=== PATIENT | female | born 1985 | race Two or more races ===

== ENCOUNTER 2024-10-17 17:02 | Emergency (ER) | payer MEDICAID, SELFPAY ==
[2024-10-17 17:26] VITALS: BP 160/97; PULSE 81; RESP 18; TEMP 36.9; O2SAT 99; BMI 27.8
--- NOTE | 2024-10-17 17:28 | PD.EDDENTL ---
ED Dental RME/HPI General Chief complaint: Dental/Oral/Throat Stated complaint: DENTAL PAIN [id number] Time Seen by Provider: 10/17/24 17:19 Source: patient Arrival date/time: 10/17/24 17:02 39-year-old female with no known medical history presents to the emergency room with a chief complaint of dental pain x 8 days Mode of arrival: ambulatory Limitations: no limitations Related Data Previous Rx's ?Medication ?Instructions ?Recorded amoxicillin 500 mg capsule 500 mg PO TID #30 caps 03/01/19 hydrocodone 5 mg-acetaminophen 325 1 tab PO Q6H #20 tabs 03/01/19 mg tablet (Mclean) ibuprofen 600 mg tablet 600 mg PO Q6H #30 tabs 03/01/19 clindamycin HCl 150 mg capsule 450 mg (3 x 150 mg) PO TID 7 days 10/17/24 #63 caps hydrocodone 5 mg-acetaminophen 325 1 tab PO BID PRN pain #10 tabs 10/17/24 mg tablet Allergies Allergy/AdvReac Type Severity Reaction Status Date / Time No Known Allergies Allergy Verified 10/17/24 17:05 Review of Systems Review of Systems Systems Reviewed: All systems reviewed, normal except as documented Constitutional Constitutional: Reports system reviewed and no additional complaints, except as documented, Denies fatigue, Denies fever(s), Denies headache(s) and Denies weakness Eyes Eyes: Reports system reviewed and no additional complaints, except as documented, Denies blurry vision and Denies change in vision ENT Ears, Nose, Mouth, and Throat: Reports system reviewed and no additional complaints, except as documented, Reports dental pain, Denies otalgia, Denies headache(s), Denies nasal congestion, Denies throat swelling and Denies vertigo Cardiovascular Cardiovascular: Reports system reviewed and no additional complaints, except as documented, Denies chest pain, Denies dyspnea and Denies dyspnea on exertion Respiratory Respiratory: Reports system reviewed and no additional complaints, except as documented, Denies chest congestion, Denies cough, Denies dyspnea, Denies dyspnea on exertion and Denies wheezing Gastrointestinal Gastrointestinal: Reports system reviewed and no additional complaints, except as documented, Denies abdominal pain, Denies cramping, Denies nausea and Denies vomiting Genitourinary Genitourinary: Reports system reviewed and no additional complaints, except as documented Musculoskeletal Musculoskeletal: Reports system reviewed and no additional complaints, except as documented and Denies back pain Integumentary/Breasts Skin/Breast: Reports system reviewed and no additional complaints, except as documented and Denies wounds Neurologic Neurologic: Reports system reviewed and no additional complaints, except as documented, Denies confusion, Denies headache(s), Denies lack of coordination, Denies vertigo and Denies weakness Psychiatric Psychiatric: Reports system reviewed and no additional complaints, except as documented, Denies anxiety, Denies confusion, Denies depression, Denies paranoia, Denies suicidal ideation and Denies tactile hallucinations Endocrine Endocrine: Reports system reviewed and no additional complaints, except as documented and Denies fatigue Hematologic/Lymphatic Hematologic/Lymphatic: Reports system reviewed and no additional complaints, except as documented and Denies lymphadenopathy Allergic/Immunologic Allergic/Immunologic: Reports system reviewed and no additional complaints, except as documented, Denies throat swelling, Denies urticaria and Denies wheezing Past Medical History Past Medical History CARDIAC: Negative Congestive Heart Failure RESPIRATORY: Negative Chronic Obstructive Pulmonary Disease (COPD) GENITOURINARY: Negative Renal Disease ENDOCRINE: Negative Diabetes Mellitus Type 1 or Diabetes Mellitus Type 2 Social History SMOKING STATUS: Never smoker ED Exam General Limitations: Present no limitations General appearance: Present alert and in no apparent distress Head Head exam: Present atraumatic Eye Eye exam: Present normal appearance, PERRL and EOMI ENT ENT exam: Present normal exam, normal oropharynx and mucous membranes moist Expanded ENT Exam External ear exam: Present normal external inspection Mouth exam: Present normal external inspection Teeth exam: Present dental caries, fractured tooth #, dental tenderness # and gingival swelling Teeth numbered:  1. Fractured and Dental Tenderness Neck Neck exam: Present normal inspection, full ROM and trachea midline Chest Chest inspection: Present normal inspection and symmetric chest wall rise Respiratory Respiratory exam: Present normal lung sounds bilaterally Cardiovascular Cardiovascular exam: Present regular rate, normal rhythm and normal heart sounds Abdominal Exam Abdominal exam: Present soft and normal bowel sounds Extremities Exam Extremities exam: Present normal inspection and full ROM Back Exam Back exam: Present normal inspection and full ROM Neurological Exam Neurological exam: Present alert, oriented X3 and CN II-XII intact Psychiatric Psychiatric exam: Present normal affect and normal mood Skin Skin exam: Present warm, dry, intact and normal color Course Quality Measures none Orders Category Date Time Status Clindamycin Vial [Cleocin vial] Med 10/17/24 17:26 Once 600 mg IM X1 ONE HYDROcodone*/APAP 5/325 [Mclean 5/325] Med 10/17/24 17:26 Once 1 tab PO X1 ONE Ketorolac Inj [Toradol Inj] Med 10/17/24 17:26 Once 30 mg IM X1 ONE Vital Signs Vital signs: Vital Signs Temperature 98.5 F 10/17/24 17:26 Pulse Rate 81 10/17/24 17:26 Respiratory Rate 18 10/17/24 17:26 Blood Pressure 160/97 H 10/17/24 17:26 Pulse Oximetry (%) 99 10/17/24 17:26 Oxygen Delivery Method Room Air 10/17/24 17:26 O2 saturation 98% within normal limits Dental / Oral MDM Narrative MDM Narrative:: 39-year-old female with no known medical history presents to the emergency room with a chief complaint of dental pain x 8 days Patient is hemodynamically stable and in no apparent distress Physical examination shows pain and tenderness to the patient's right molars. There is tooth decay, a fractured tooth and tenderness and pain to the tooth as well as the gingiva. Patient states she was seen by her primary care provider and she saw a dentist which is going to call her with a date to remove this tooth. Patient was prescribed antibiotics by her primary care provider but today she presents with pain. Pain medication was given to the patient. Patient was discharged and educated to follow-up with your dentist and return to the emergency room for any evidence of worsening signs or symptoms Patient data External records reviewed:: [facility] previous records Clinical information provided by:: patient Social determinants that could affect healthcare access:: none Patient has the following chronic illnesses:: No chronic illness How is presenting disease/condition affected by chronic disease/condition?: no chronic disease Evaluation data The following diagnostics were reviewed and interpreted by me:: lab results and radiology exam(s) Lab and/or radiology exams considered but not ordered:: Labs radiology exams considered and ordered Interpretation Summary: N/A Medications / Prescriptions Medications or Prescriptions considered but not ordered:: Medication given Medication administrations:: Medication Administration History Discontinued Medications Hydrocodone Bitart/Acetaminophen (Hydrocodone/Apap 5/325 Tablet) 1 tab PO X1 ONE Stop: 10/17/24 17:27 Clindamycin Phosphate (Clindamycin Phos Inj 150 Mg/Ml Vial 6 Ml) 600 mg IM X1 ONE Stop: 10/17/24 17:27 Ketorolac Tromethamine (Ketorolac Inj 60 Mg/2 Ml Vial) 30 mg IM X1 ONE Stop: 10/17/24 17:27 Medication given Consultations Consultation(s) initiated? (list below): No Diagnosis Dental Differential Diagnosis: gingival abscess, dental caries, toothache and fracture of tooth Most likely diagnosis given after review of the tests above:: Toothache Admission Indicated Admission indicated?: not indicated Admission Request Was there a request for admission?: No Disposition Plan Disposition Plan: Discharge Discharge Attestation Discharge Attestation: The patient and all family members were given an opportunity to ask questions and understood the discharge instructions. Discharge instructions specifically effects, indications for sooner follow up or return to the emergency department, and the expected course of current diagnosis. Patient condition: Stable Discharge Plan Plan Patient Disposition: HOME (Self Care) Discharge Disposition comment: Stable Prescriptions/Referrals Prescriptions/Med Rec: New clindamycin HCl 150 mg capsule 450 mg PO TID 7 Days Qty: 63 0RF hydrocodone-acetaminophen 5-325 mg tablet 1 tab PO BID MDD 10mg PRN (Reason: pain) Qty: 10 0RF No Action amoxicillin 500 mg capsule 500 mg PO TID Qty: 30 0RF ibuprofen 600 mg tablet 600 mg PO Q6H Qty: 30 0RF hydrocodone-acetaminophen [Mclean] 5-325 mg tablet 1 tab PO Q6H MDD 6 Qty: 20 0RF Problem List Clinical Impression: Toothache, Dental caries Patient/Caregiver Discharge Instructions Education Materials: Understanding Tooth Decay, ED Dental Pain, ED Dental Cavity Additional Instructions: Please follow-up with your dentist in the next 24 to 48 hours For any evidence of worsening signs or symptoms return to the emergency room immediately Print Language: Bangladeshi Stand Alone Forms: Abril Award Info., Work/School Release, Patient Portal Info Letter PA/PROCESS IMPROVEMENT CONSULTANT Supervising Physician PA/PROCESS IMPROVEMENT CONSULTANT Supervising Physician: Dr. VALENCIA
[2024-10-17] MEDS: KETOROLAC INJ 60 MG/2 ML VIAL 30 MG IM (18:11)
[2024-10-17] MEDS: HYDROcodone/APAP 5/325 TABLET 1 TAB PO (18:12)
[2024-10-17] MEDS: CLINDAMYCIN PHOS INJ 150 MG/ML VIAL 6 ML 600 MG IM (18:13)
== END 2024-10-17 18:24 | disposition home or self-care (01) ==
LOC: SERX 18:50
PROVIDERS: Emergency Provider Emergency Medicine; PCP Family Medicine
DX: K02.9 Dental caries, unspecified (principal)
CPT/HCPCS: 96372; 99283; J0736; J1885; A9270